=== PATIENT | female | born 1975 | race Caucasian/White ===

== ENCOUNTER 2018-06-27 12:44 | Emergency (ER) | payer SELFPAY ==
[2018-06-27 13:38] LABS: HEMATOCRIT 41.3 % (37.0-47.0); HEMOGLOBIN 14.1 g/dl (12.0-16.0); IMMATURE GRANULOCYTES 0.3 % (0.0-5.0); MEAN CELL VOLUME 93.7 fL CALC (80.0-100.0); MEAN CORPUSCULAR HGB CONC 34.1 g/L CALC (32.0-36.0); NEUT# 12.36 thou/uL (2.00-7.15); RED BLOOD COUNT 4.41 mill/uL (4.20-5.60); RED CELL DISTRI WIDTH 12.4 % (11.5-15.5)
[2018-06-27 13:56] LABS: ALBUMIN 4.4 g/dL (3.2-5.0); ALKALINE PHOSPHATASE 107 u/l (38-126); ANION GAP 20 (6-22 (CALC)); BILIRUBIN, TOTAL 0.5 mg/dL (0.0-1.4); BUN 8 mg/dL (7-17); BUN/CREATININE RATIO 13 (12-20 (CALC)); CARBON DIOXIDE 20 mmol/l (22-30); CHLORIDE 101 mmol/l (95-108); CREATININE 0.6 mg/dL (0.5-1.0); GFR > 60 ML/MIN (>=60 (CALC)); GFR FOR AFR.AMER. > 60 ML/MIN (>=60 (CALC)); POTASSIUM 3.7 mmol/l (3.5-5.1); SGOT/AST 48 u/l (14-36); SODIUM 138 mmol/l (137-146)
[2018-06-27] MEDS ORDERED: KEFLEX500 M1 PO (14:33)
[2018-06-27] MEDS ORDERED: BACTRIM DS1 TAB PO (14:33)
[2018-06-27 14:40] VITALS: BP 113/62
== END 2018-06-27 14:40 | disposition home or self-care (01) | DRG 603 ==
LOC: ED 12:44
DX: L03.012 Cellulitis of left finger (principal); L03.011 Cellulitis of right finger; L98.9 Disorder of the skin and subcutaneous tissue, unspecified